=== PATIENT | female | born 1980 | race Caucasian/White ===

== ENCOUNTER → 2020-12-09 | Outpatient (CLI) | payer MEDICARE, OTHER ==
[~2020-12-09] MED LIST: DOCUSATE SODIU100 MG PO; FEOSOL325 MG PO; PRENATA CHEWAB1 EACH PO; RANITIDINE HCL150 MG PO; VITAMIN C 500500 MG PO
== END ==
LOC: KOH-I 12:38
DX: R06.02 Shortness of breath (principal)
CPT/HCPCS: 71046